=== PATIENT | female | born 1985 ===

== ENCOUNTER 2024-09-25 07:50 | Outpatient (CLI) | payer OTHER, MEDICAID, SELFPAY ==
--- NOTE | 2024-09-25 08:11 | NM_ITS ---
WS: [id number] NUCLEAR MEDICINE 24 HOUR I-123 THYROID UPTAKE INDICATION: Hyperthyroidism. Tremors. Enlarged thyroid TECHNIQUE: I-123 24 HOUR THYROID UPTAKE WITH PLANAR IMAGING. 160.4 UCI DESI 123 COMPARISON: No comparisons FINDINGS: Normal homogeneous thyroid uptake bilaterally. No cold nodules. 24-hour uptake within normal limits of 28.1% NORMAL 24H THRYOID UPTAKE 8-35% NM/NM thyroid uptake multi 56099 IMPRESSION: 1. Normal 24-hour uptake 28.1%
== END 2024-09-25 07:51 | disposition home or self-care (01) ==
PROVIDERS: Visit Provider Nurse Practitioner Family
DX: E05.90 Thyrotoxicosis, unspecified without thyrotoxic crisis or storm (principal)
CPT/HCPCS: 78014; A9516